=== PATIENT | male | born 1980 | race Two or more races ===

== ENCOUNTER 2020-03-11 08:25 | Outpatient (CLI) | payer OTHER | END 2020-03-11 08:33 | disposition home or self-care (01) | LOC: NUCLEAR 08:25 | PROVIDERS: ATTEND Internal Medicine | DX: E04.8 Other specified nontoxic goiter (principal) | CPT/HCPCS: A9531; 78012 ==

== ENCOUNTER 2020-03-12 10:08 | Outpatient (CLI) | payer OTHER | END 2020-03-12 10:23 | disposition home or self-care (01) | LOC: NUCLEAR 10:08 | PROVIDERS: ATTEND Internal Medicine | DX: E04.8 Other specified nontoxic goiter (principal) | CPT/HCPCS: 78013; A9512 ==

== ENCOUNTER 2020-04-26 12:03 | Outpatient (CLI) | payer OTHER | END 2020-04-26 13:27 | disposition home or self-care (01) | LOC: SONOGRAMA 12:03 | PROVIDERS: ATTEND Pathology Anatomic Pathology & Clinical Pathology | DX: D34 Benign neoplasm of thyroid gland (principal); E07.89 Other specified disorders of thyroid ==